=== PATIENT | male | born 1980 | race Caucasian/White ===

== ENCOUNTER → 2021-01-31 | Emergency (ER) | payer SELFPAY ==
[~2021-01-31] VITALS: Ht 180.3 cm; Wt 70.3 kg
[~2021-01-31] MED LIST: IV NS 0.9% 1,000 ML BAG IV ONE; ONDANSETRON HCL/PF 4 MG/2 ML VIAL IVP ONE
--- NOTE | 2021-01-31 23:15 | NUR ---
PATIENT CAME IN FOR N/V X 2 DAYS, FEELING DIZZY AND NOT ABLE TO EAT MUCH. 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 WILL CONTINUE TO MONITOR.
--- NOTE | 2021-01-31 23:40 | NUR ---
Patient discharged to home in stable condition. Written and verbal after care instructions given. Patient verbalizes understanding of instruction.
[2021-01-31 23:43] VITALS: BP 140/85
== END | disposition home or self-care (01) ==
LOC: ER 22:58
DX: Z00.8 Encounter for other general examination (principal); F32.9 Major depressive disorder, single episode, unspecified; G89.29 Other chronic pain; Z88.8 Allergy status to other drugs, medicaments and biological substances; Z60.2 Problems related to living alone